=== PATIENT | male | born 1995 | race Caucasian/White ===

== ENCOUNTER 2018-08-07 10:22 | Outpatient (CLI) | payer BC, OTHER ==
--- NOTE | 2018-08-07 11:57 | ULT ---
HEPATIC DOPPLER ULTRASOUND: HISTORY: Hepatomegaly. COMPARISON: None. TECHNIQUE: Real-time, orr-scale, color Doppler, and spectral analysis of the liver and hepatic portal veins is obtained. FINDINGS: The liver measures 13.2 cm in length. The gallbladder is normal. The common bile duct measures 2 mm . Normal directional flow and phasicity within the hepatic artery, portal veins, and hepatic veins. IMPRESSION: Normal directional flow of the hepatic vessels. POS: [facility]
== END 2018-08-07 10:23 | disposition home or self-care (01) ==
LOC: SCSULT 10:22
PROVIDERS: ATTEND Internal Medicine
DX: R16.0 Hepatomegaly, not elsewhere classified (principal)
CPT/HCPCS: 76705